=== PATIENT | male | born 1990 | race African-American/Black ===

== ENCOUNTER 2017-06-27 11:45 | Emergency (ER) | payer BC | END 2017-06-27 13:00 | disposition home or self-care (01) | LOC: ERS 11:45 | DX: G40.909 Epilepsy, unspecified, not intractable, without status epilepticus (principal); K21.9 Gastro-esophageal reflux disease without esophagitis; Z79.899 Other long term (current) drug therapy | CPT/HCPCS: 93005; 96360 ==

== ENCOUNTER 2020-03-13 19:16 | Emergency (ER) | payer BC ==
[2020-03-13] MEDS ORDERED: levETIRAcetam in NS 1,000 MG in Premix Bag 1 BAG IVPB ONE (20:00)
[2020-03-13] MEDS ORDERED: levETIRAcetam in NS 100 ML ONE (20:24)
[2020-03-13 20:25] LABS: #Basophils 0.1 thou/uL (0.0-0.2); #Lymphocytes 2.2 thou/uL (1.20-3.40); #Monocytes 0.8 thou/uL (0.11-0.59); #Neutrophils 6.5 thou/uL (1.40-6.50); %Basophils 0.6 % (0.0-1.0); %Eosinophils 0.2 % (0.0-10.0); %Lymphocytes 23.1 % (21.0-51.0); %Monocytes 8.5 % (0.0-10.0); %Neutrophils 67.5 % (42.0-75.0); Hemoglobin 14.2 g/dL (14.0-18.0); Mean Corpuscular HGB CONC 33.4 g/dL (32.0-36.0); Mean Corpuscular Hemoglobin 31.1 pg (27.0-31.0); Mean Corpuscular Volume 93.2 fL (78.0-98.0); Mean Platelet Volume 6.4 fL (7.4-10.4); Platelet Count 299 thou/uL (130-400); Red Blood Cell (RBC) Count 4.54 mill/uL (4.70-6.10); White Blood Cell (WBC) Count 9.7 thou/uL (4.8-10.8)
[2020-03-13 20:45] LABS: ALT (SGPT) 16 U/L (8-55); AST (SGOT) 19 U/L (5-34); Albumin 4.6 g/dL (3.5-5.0); Alkaline Phosphatase 64 U/L (40-110); Anion Gap 19 mmol/L (10-20); BUN (Urea Nitrogen) 9 mg/dL (8.9-20.6); Bilirubin, Total 0.4 mg/dL (0.2-1.2); Calc. Creatinine Clearance 0 mL/min (70-130); Calcium 9.7 mg/dL (7.8-10.44); Carbon Dioxide 20 mmol/L (22-29); Chloride 106 mmol/L (98-107); Globulin 3.9 g/dL (2.4-3.5); Glucose 101 mg/dL (70-105); Potassium 3.8 mmol/L (3.5-5.1); Protein, Total 8.5 g/dL (6.0-8.3); Sodium 141 mmol/L (136-145)
== END 2020-03-13 22:14 | disposition home or self-care (01) ==
LOC: ERS 19:16
DX: R56.9 Unspecified convulsions (principal); K21.9 Gastro-esophageal reflux disease without esophagitis
CPT/HCPCS: 80053; 85025; 96365; 96366; J1953

== ENCOUNTER 2020-08-12 09:23 | Emergency (ER) | payer BC ==
[2020-08-12] MEDS ORDERED: levETIRAcetam 500 MG/100 ML PREMIX BAG ONE (09:59)
== END 2020-08-12 10:55 | disposition home or self-care (01) ==
LOC: ERS 09:23
DX: G40.909 Epilepsy, unspecified, not intractable, without status epilepticus (principal); Z79.899 Other long term (current) drug therapy; K21.9 Gastro-esophageal reflux disease without esophagitis
CPT/HCPCS: 70450; 94760; 96365; J1953

== ENCOUNTER 2020-10-14 17:18 | Emergency (ER) | payer BC ==
[2020-10-14] MEDS ORDERED: levETIRAcetam in NS 0 ML ONE (19:11)
[2020-10-14] MEDS ORDERED: levETIRAcetam 500 MG TAB PO SCH (19:15)
== END 2020-10-14 19:21 | disposition home or self-care (01) ==
LOC: ERS 17:18
DX: G40.409 Other generalized epilepsy and epileptic syndromes, not intractable, without status epilepticus (principal); K21.9 Gastro-esophageal reflux disease without esophagitis; Z79.899 Other long term (current) drug therapy
CPT/HCPCS: 99284; J1953